=== PATIENT | female | born 1985 | race Caucasian/White ===

== ENCOUNTER 2017-06-01 19:07 | Emergency (ER) | payer OTHER ==
[2017-06-01 19:40] VITALS: BP 140/93
[2017-06-01] MEDS ORDERED: Acetaminophen 325 MG Tab PO ONE (19:54)
[2017-06-01] MEDS ORDERED: Sodium Chloride 0.9% 1,000 ML IV STA (19:54)
--- NOTE | 2017-06-01 20:08 | EDM.PDOC ---
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 Patient is . She has 1. Her last period was April 19. She is having some spotting started today. No recent intercourse or any vaginal trauma. Patient had similar symptoms 2 weeks ago that resolved spontaneously. She is Rh+. Denies any urinary symptoms. Denies any nausea or vomiting. Denies any blood in the urine or stool. Denies any chest pain or shortness breath. Denies any cough or fever. 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 Psychiatric History: Reports: Anxiety Endocrine/Metabolic History: Reports: Diabetes, Gestational - Infectious Disease History Infectious Disease History: Reports: Chicken Pox - Past Surgical History GI Surgical History: Reports: Appendectomy Social & Family History - Family History Family Medical History: Noncontributory - Tobacco Use Smoking Status *Q: Current Status Unknown Years of Tobacco use: 10 Packs/Tins Daily: 0 - Caffeine Use Caffeine Use: Reports: Coffee - Recreational Drug Use Recreational Drug Use: No ED ROS GENERAL - Review of Systems Review Of Systems: ROS reveals no pertinent complaints other than HPI. ED EXAM - Physical Exam Exam: See Below Exam Limited By: No Limitations General Appearance: Alert, WD/WN, No Apparent Distress Head: Atraumatic, Normocephalic Neck: Normal Inspection, Supple, Non-Tender, Full Range of Motion Respiratory/Chest: No Respiratory Distress, Lungs Clear, Normal Breath Sounds, No Accessory Muscle Use, Chest Non-Tender Cardiovascular: Normal Peripheral Pulses, Regular Rate, Rhythm, No Edema, No Gallop, No JVD, No Murmur, No Rub GI/Abdominal Exam: Normal Bowel Sounds, Soft, No Organomegaly, No Distention, No Abnormal Bruit, No Mass, Pelvis Stable, Tender (Left lower quadrant). No: Distended, Guarding, Rebound (Female) Exam: Normal Bimanual Exam, Normal External Exam, Normal Speculum Exam. No: Adnexal Mass (L), Adnexal Mass (R), Adnexal Tenderness, Cervical Dilatation, Cervical Discharge, Cervical Fluid, Cervical Lesions, Cervix Motion Tenderness, Products of Conception, Tissue Present in Cervix/Vagina, Uterine Tenderness, Vaginal Bleeding, Vaginal Discharge, Vaginal Lesions, Vaginal Tears Extremities: Normal Inspection, Normal Range of Motion, Non-Tender, Normal Capillary Refill, No Pedal Edema Neurological: Alert, Oriented, CN II-XII Intact, Normal Cognition, Normal Gait, Normal Reflexes, No Motor/Sensory Deficits Psychiatric: Normal Affect, Normal Mood Skin Exam: Warm, Dry, Intact, Normal Color, No Rash Course - Vital Signs Last Recorded V/S: Last Vital Signs Temp 36.0 C 06/01/17 19:38 Pulse 68 06/01/17 19:38 Resp 16 06/01/17 19:38 BP 140/93 H 06/01/17 19:38 Pulse Ox 100 06/01/17 19:38 - Orders/Labs/Meds Orders: Active Orders 24 hr Category Date Time Status Pelvic Exam, Set Up [RC] ASDIRECTED Care 06/01/17 19:54 Active OB Transvaginal [US] Stat Exams 06/01/17 20:01 Taken ABO/RH TYPE [BBK] Stat Lab 06/01/17 20:09 Results PATIENT RETYPE [BBK] Stat Lab 06/01/17 20:09 Results ED Pain Medications Reflex [OM.PC] Click to Edit Oth 06/01/17 19:54 Ordered Labs: Laboratory Tests 06/01/17 06/01/17 06/01/17 Range/Units 20:00 20:09 20:09 WBC 14.2 H (4.5-11.0) K/uL RBC 4.41 (3.30-5.50) M/uL Hgb 14.0 (12.0-15.0) g/dL Hct 41.1 (36.0-48.0) % MCV 93 (80-98) fL MCH 32 H (27-31) pg MCHC 34 (32-36) % Plt Count 309 (150-400) K/uL Neut % (Auto) 62 (36-66) % Lymph % (Auto) 30 (24-44) % [place] % (Auto) 6 (2-6) % Eos % (Auto) 3 (2-4) % Baso % (Auto) 0 (0-1) % APTT 26.1 L (27.0-36.0) sec Sodium (140-148) mmol/L Potassium (3.6-5.2) mmol/L Chloride (100-108) mmol/L Carbon Dioxide (21-32) mmol/L Anion Gap (5.0-14.0) mmol/L BUN (7-18) mg/dL Creatinine (0.6-1.0) mg/dL Est Cr Clr Drug Dosing mL/min Estimated GFR (MDRD) (>60) Glucose (74-106) mg/dL Calcium (8.5-10.1) mg/dL Total Bilirubin (0.2-1.0) mg/dL AST (15-37) U/L ALT (12-78) U/L Alkaline Phosphatase (46-116) U/L Total Protein (6.4-8.2) g/dL Albumin (3.4-5.0) g/dL Globulin (2.3-3.5) g/dL Albumin/Globulin Ratio (1.2-2.2) HCG, Quant 3957 H (0-6) mIU/mL Urine Color Urine Appearance Urine pH (4.5-8.0) Ur Specific [place] (1.008-1.030) Urine Protein (NEGATIVE) mg/dL Urine Glucose (UA) (NEGATIVE) mg/dL Urine Ketones (NEGATIVE) mg/dL Urine Occult Blood (NEGATIVE) Urine Nitrite (NEGATIVE) Urine Bilirubin (NEGATIVE) Urine Urobilinogen (NORMAL) mg/dL Ur Leukocyte Esterase (NEGATIVE) Urine RBC (0-5) Urine WBC (0-5) Ur Epithelial Cells Amorphous Sediment Urine Bacteria Urine Mucus Blood Type 06/01/17 06/01/17 06/01/17 Range/Units 20:09 20:09 21:38 WBC (4.5-11.0) K/uL RBC (3.30-5.50) M/uL Hgb (12.0-15.0) g/dL Hct (36.0-48.0) % MCV (80-98) fL MCH (27-31) pg MCHC (32-36) % Plt Count (150-400) K/uL Neut % (Auto) (36-66) % Lymph % (Auto) (24-44) % [place] % (Auto) (2-6) % Eos % (Auto) (2-4) % Baso % (Auto) (0-1) % APTT (27.0-36.0) sec Sodium 136 L (140-148) mmol/L Potassium 3.7 (3.6-5.2) mmol/L Chloride 104 (100-108) mmol/L Carbon Dioxide 26 (21-32) mmol/L Anion Gap 9.7 (5.0-14.0) mmol/L BUN 11 (7-18) mg/dL Creatinine 0.8 (0.6-1.0) mg/dL Est Cr Clr Drug Dosing 107.46 mL/min Estimated GFR (MDRD) > 60 (>60) Glucose 88 (74-106) mg/dL Calcium 8.8 (8.5-10.1) mg/dL Total Bilirubin 0.6 (0.2-1.0) mg/dL AST 14 L (15-37) U/L ALT 23 (12-78) U/L Alkaline Phosphatase 77 (46-116) U/L Total Protein 6.9 (6.4-8.2) g/dL Albumin 3.8 (3.4-5.0) g/dL Globulin 3.1 (2.3-3.5) g/dL Albumin/Globulin Ratio 1.2 (1.2-2.2) HCG, Quant (0-6) mIU/mL Urine Color Yellow Urine Appearance Clear Urine pH 6.0 (4.5-8.0) Ur Specific [place] 1.020 (1.008-1.030) Urine Protein Negative (NEGATIVE) mg/dL Urine Glucose (UA) Normal (NEGATIVE) mg/dL Urine Ketones Negative (NEGATIVE) mg/dL Urine Occult Blood Negative (NEGATIVE) Urine Nitrite Negative (NEGATIVE) Urine Bilirubin Negative (NEGATIVE) Urine Urobilinogen Normal (NORMAL) mg/dL Ur Leukocyte Esterase Negative (NEGATIVE) Urine RBC 0-5 (0-5) Urine WBC 0-5 (0-5) Ur Epithelial Cells Few Amorphous Sediment Not seen Urine Bacteria Few Urine Mucus Moderate Blood Type O POSITIVE Meds: Medications Discontinued Medications Generic Name Dose Route Start Last Admin Trade Name Tomasz PRN Reason Stop Dose Admin Acetaminophen 1,000 mg 06/01/17 19:54 Tylenol PO 06/01/17 19:55 NOW ONE Acetaminophen 1,000 mg 06/01/17 20:21 06/01/17 20:25 Tylenol Extra Strength PO 06/01/17 20:22 1,000 mg ONETIME ONE Administration Sodium Chloride 1,000 mls @ 999 mls/hr 06/01/17 19:54 06/01/17 20:39 Normal Saline IV 06/01/17 20:54 999 mls/hr .BOLUS STA Administration - Re-Assessments/Exams Free Text/Narrative Re-Assessment/Exam: 06/01/17 22:17 Patient was seen and examined shortly after arrival. Given 1 L normal saline bolus, 1 g of Tylenol. Symptoms markedly improved. Lab and imaging reviewed with the patient. Slightly elevated white count which can be secondary to also could be reactive. No sign of infection anywhere this point. No fever. Ultrasound shows an intrauterine gestational sac. No heart tones seen. Consistent was 5 weeks . Ovaries looks normal. No torsion. At this point unclear etiology of her pain. Differential includes but not limited to ectopic , round ligament pain, UTI, diverticulitis, ovarian torsion, threatened , etc. Unclear etiology at this point. No sign of ectopic. Urine unremarkable. No sign of ovarian torsion. Symptom markedly improved. Patient refused admission. Advised to monitor closely. Come back if symptom worsen. Tylenol for pain. To stay well-hydrated. And reevaluation tomorrow at the clinic or come back to the ER if symptom worsen. Patient agrees with the plan. Stable for discharge Departure - Departure Time of Disposition: 22:22 Disposition: Home, Self-Care 01 Clinical Impression: Threatened , Left lower quadrant abdominal pain of unknown etiology - Discharge Information Instructions: Pelvic Pain, Female, Ovarian Torsion Referrals: PCP,None [Primary Care Provider] - Forms: ED Department Discharge Additional Instructions: Advised to monitor closely. Come back if symptom worsen. Tylenol for pain. To stay well-hydrated. And reevaluation tomorrow at the clinic or come back to the ER if symptom worsen - My Orders Last 24 Hours: My Active Orders 06/01/17 19:54 Pelvic Exam, Set Up [RC] ASDIRECTED ED Pain Medications Reflex [OM.PC] Click to Edit 06/01/17 20:01 OB Transvaginal [US] Stat 06/01/17 20:09 ABO/RH TYPE [BBK] Stat PATIENT RETYPE [BBK] Stat - Assessment/Plan Last 24 Hours: My Active Orders 06/01/17 19:54 Pelvic Exam, Set Up [RC] ASDIRECTED ED Pain Medications Reflex [OM.PC] Click to Edit 06/01/17 20:01 OB Transvaginal [US] Stat 06/01/17 20:09 ABO/RH TYPE [BBK] Stat PATIENT RETYPE [BBK] Stat Plan: Advised to monitor closely. Come back if symptom worsen. Tylenol for pain. To stay well-hydrated. And reevaluation tomorrow at the clinic or come back to the ER if symptom worsen
[2017-06-01] MEDS ORDERED: Acetaminophen 500 MG Tab PO ONE (20:21)
--- NOTE | 2017-06-02 08:56 | US ---
OB Transvaginal HISTORY: , spotting FINDINGS: Transabdominal and transvaginal techniques were used during the exam. A single intrauterin e gestational sac is identified. No definite pole or cardiac activity can be seen. No sac is no t visualized.. Mean sac diameter corresponds of an EGA of 5 weeks 1 day gestation. This gives an EDC of 01/24/2018 +/- 1 week. No other uterine abnormality. Maternal ovaries are unremarkable. There is a small amount of free fluid in the pelvic cul-de-sac. IMPRESSION: Early intrauterine . Gestational sac measures 5 weeks 1 day +/- 1 week gestation as above. No definite pole or cardiac activity can be identified at this time. Recommend clini josue correlation and follow-up.
== END 2017-06-01 22:35 | disposition home or self-care (01) ==
LOC: JP.ED 19:07
DX: O20.0 Threatened abortion (principal)
CPT/HCPCS: 36415; 76817; 80053; 81001; 84702; 85025; 85730; 86900; 86901; 96360; 99284; A9270; J7040

== ENCOUNTER 2021-07-10 07:13 | Emergency (ER) | payer MEDICAID ==
[2021-07-10] MEDS ORDERED: Ondansetron 4 MG Tab.DIS PO ONE (07:57)
[2021-07-10] MEDS ORDERED: Acetaminophen/oxyCODONE 325-5 MG Tab PO STA (07:57)
[2021-07-10] MEDS ORDERED: LORazepam 0.5 MG Tab PO ONE (08:01)
--- NOTE | 2021-07-10 08:09 | EDM.PDOC ---
ED HPI GENERAL MEDICAL PROBLEM - General Chief Complaint: Genitourinary Problem Stated Complaint: BACK PAIN, POSSIBLE UTI Time Seen by Provider: 07/10/21 07:50 Source of Information: Reports: Patient, Old Records History Limitations: Reports: No Limitations - History of Present Illness INITIAL COMMENTS - FREE TEXT/NARRATIVE: 36 yo female presents with dysuria, nausea, and low back pain. No fever. Had some dysuria on Mon that went away until yesterday afternoon. Has not vomited. Took Pyridium, ibuprofen and acetaminophen this AM without relief. Feels different from her past UTI's. Has low pelvic pain now. Onset: Gradual Onset Date: 07/07/21 Duration: Getting Worse Location: Reports: Back, Pelvis Quality: Reports: Pressure Severity: Moderate Improves with: Reports: None Worsens with: Reports: Other (time) Context: Reports: Other (See HPI) Associated Symptoms: Reports: Nausea/Vomiting (no vomiting). 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, Other (see below) (Pyridium) Left Flank Pain Score (Numeric/FACES): 9 - Related Data Allergies Allergy/AdvReac Type Severity Reaction Status Date / Time [place] And Derivatives Allergy Anaphylactic Verified 07/10/21 08:10 Shock Home Meds: Home Meds Ciprofloxacin [Ciprofloxacin HCl] 250 mg PO Q12H #10 tablet 07/10/21 [Rx] Ondansetron [Zofran ODT] 4 mg PO Q6H PRN #8 tab.dis 07/10/21 [Rx] atorvaSTATin [Lipitor] 10 mg PO BEDTIME 07/10/21 [History] metFORMIN [Glucophage XR] 500 mg PO BID 07/10/21 [History] Past Medical History HEENT History: Reports: Other (See Below) Other HEENT History: allergic reaction - roof of mouth, throat, Respiratory History: Reports: Other (See Below) Other Respiratory History: trouble breathing prior to benadryl 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 Denies: Fever, Chills Cardiovascular: Reports: No Symptoms GI/Abdominal: Reports: Diarrhea, Nausea. Denies: Bloody Stool, Constipation, Vomiting : Reports: Dysuria, Other (pelvic pain) Musculoskeletal: Reports: Back Pain Skin: Reports: No Symptoms ED EXAM, RENAL/ - Physical Exam Exam: See Below Exam Limited By: No Limitations General Appearance: Alert, WD/WN, No Apparent Distress, Obese Eye Exam: Bilateral Eye: Normal Inspection Ears: Normal External Exam, Normal Canal, Hearing Grossly Normal, Normal TMs Nose: Normal Inspection, No Blood Throat/Mouth: Normal Inspection, Normal Lips, Normal Oropharynx, Normal Voice, No Airway Compromise Head: Atraumatic, Normocephalic Neck: Normal Inspection Respiratory/Chest: No Respiratory Distress, Lungs Clear, Normal Breath Sounds, No Accessory Muscle Use Cardiovascular: Regular Rate, Rhythm GI/Abdominal: Soft, Non-Tender, No Distention. No: Distended Back Exam: CVA Tenderness (R) (? mild), CVA Tenderness (L) (? mild) Extremities: Normal Inspection, Normal Range of Motion, Non-Tender, No Pedal Edema. No: Pedal Edema Neurological: Alert, Oriented, CN II-XII Intact, Normal Cognition, No Motor/Sensory Deficits Psychiatric: Normal Affect, Normal Mood Skin Exam: Warm, Dry, Intact, Normal Color, No Rash Course - Vital Signs Last Recorded V/S: Last Vital Signs Temp 36.8 C 07/10/21 08:11 Pulse 107 H 07/10/21 08:11 Resp 18 07/10/21 08:11 BP 160/94 H 07/10/21 08:11 Pulse Ox 99 07/10/21 08:11 - Orders/Labs/Meds Orders: Active Orders 24 hr Category Date Time Status CULTURE URINE [RM] Stat Lab 07/10/21 08:01 Received Labs: Laboratory Tests 07/10/21 Range/Units 07:38 Urine Color [place] A (YELLOW) Urine Appearance Cloudy A (CLEAR) Urine RBC Packed H (0-5) Urine WBC 75-100 H (0-5) Ur Epithelial Cells Rare Amorphous Sediment Moderate Urine Bacteria Many Urine Mucus Not seen Urine Other Meds: Medications Discontinued Medications Generic Name Dose Route Start Last Admin Trade Name Freq PRN Reason Stop Dose Admin Lorazepam 0.5 mg 07/10/21 08:01 07/10/21 08:15 Lorazepam 0.5 Mg Tab PO 07/10/21 08:02 0.5 mg ONETIME ONE Administration Ondansetron HCl 4 mg 07/10/21 07:57 07/10/21 08:15 Ondansetron 4 Mg Tab.Dis PO 07/10/21 07:58 4 mg ONETIME ONE Administration Oxycodone/Acetaminophen 1 tab 07/10/21 07:57 07/10/21 08:14 Acetaminophen/Oxycodone 325-5 Mg Tab PO 07/10/21 07:58 1 tab ONETIME STA Administration - Radiology Interpretation Free Text/Narrative:: CT abd/pelvis without contrast- IMPRESSION: 1. Nonspecific mild urinary bladder wall thickening. Correlate for clinical evidence of cystitis. 2. No urolithiasis or hydronephrosis bilaterally. 3. Diffuse hepatic steatosis. Dictated by James Arreola MD @ 07/10/2021 9:13:[address] Results Date: 07/10/21 CT Results Time: 09:14 Departure - Departure Time of Disposition: 09:20 Disposition: Home, Self-Care 01 Condition: Fair Clinical Impression: Cystitis - Discharge Information *PRESCRIPTION DRUG MONITORING PROGRAM REVIEWED*: Not Applicable *COPY OF PRESCRIPTION DRUG MONITORING REPORT IN PATIENT ELY: Not Applicable Instructions: Urinary Tract Infection, Adult, [id number] Referrals: Sonia Land PA-C [Primary Care Provider] - Forms: ED Department Discharge Additional Instructions: Take cipro every 12 hrs until gone. Use Zofran as needed for nausea control. Drink ample amts of fluids. Take Pyridium or AZO for dysuria sx's. Acetaminophen for pain +/- ibuprofen. Recheck for fever or if not fully recovered by the time you finish your antibiotics. We will contact you if your urine culture suggests a change in antibiotics is needed. Sepsis Event Note (ED) - Focused Exam Vital Signs: Vital Signs Temp Pulse Resp BP Pulse Ox 07/10/21 08:11 36.8 C 107 H 18 160/94 H 99 - My Orders Last 24 Hours: My Active Orders 07/10/21 08:01 CULTURE URINE [RM] Stat - Assessment/Plan Last 24 Hours: My Active Orders 07/10/21 08:01 CULTURE URINE [RM] Stat
[2021-07-10 08:14] VITALS: BP 160/94; PULSE 107
--- NOTE | 2021-07-10 09:14 | CRLCT ---
For Patients: As a result of the Century Cures Act, medical imaging exams and procedure reports are released immediately into your electronic medical record. You may view this report before your referring provider. If you have questions, please contact your health care provider. INDICATION: Flank pain and hematuria. TECHNIQUE: CT abdomen and pelvis without intravenous contrast. Coronal and sagittal formats. COMPARISON: None available. FINDINGS: The imaged lower chest is unremarkable. Diffuse hepatic steatosis. No biliary dilatation. The gallbladder, pancreas, spleen, and adrenals are unremarkable. Symmetric renal size. No urolithiasis or hydronephrosis bilaterally. Urinary bladder wall appears mildly thickened diffusely. The anteverted uterus. Mild scattered colonic diverticulosis without acute inflammatory changes. Nondilated small bowel. Appendix is surgically absent. No free air, free fluid, focal collection, or lymphadenopathy. Normal caliber abdominal aorta. No suspicious osseous lesion. IMPRESSION: 1. Nonspecific mild urinary bladder wall thickening. Correlate for clinical evidence of cystitis. 2. No urolithiasis or hydronephrosis bilaterally. 3. Diffuse hepatic steatosis. Dictated by James Arreola MD @ 07/10/2021 9:13:07 AM Please note that all CT scans at this facility use dose modulation, iterative reconstruction, and/or weight-based dosing when appropriate to reduce radiation dose to as low as reasonably achievable. Dictated by: James Arreola MD @ 07/10/2021 09:13:13 (Electronically Signed)
[2021-07-10] MEDS ORDERED: Ciprofloxacin 500 MG Tab PO ONE (09:19)
== END 2021-07-10 09:27 | disposition home or self-care (01) ==
LOC: JP.ED 07:13
DX: N30.90 Cystitis, unspecified without hematuria (principal); Z88.8 Allergy status to other drugs, medicaments and biological substances; Z79.899 Other long term (current) drug therapy
CPT/HCPCS: 74176; 81001; 87086; 99284; A9270

== ENCOUNTER 2021-10-07 20:30 | Emergency (ER) | payer OTHER, MEDICAID ==
[2021-10-07 21:09] VITALS: BP 163/96; PULSE 105
[2021-10-07] MEDS ORDERED: Pantoprazole 40 MG Tab.CR PO ONE (21:15)
[2021-10-07] MEDS ORDERED: Alum Hydrox/Mag Hydrox/Simeth 15 ML, Lidocaine 2% 15 ML PO ONE ×2 (21:15)
[2021-10-07] MEDS ORDERED: Ondansetron 4 MG Tab.DIS PO ONE (21:17)
== END 2021-10-07 22:24 | disposition home or self-care (01) ==
LOC: JP.ED 20:30
DX: K21.9 Gastro-esophageal reflux disease without esophagitis (principal); E78.00 Pure hypercholesterolemia, unspecified; Z91.048 Other nonmedicinal substance allergy status; Z79.899 Other long term (current) drug therapy; Z72.0 Tobacco use
CPT/HCPCS: 36415; 80053; 83690; 85025; 99284; A9270; Q0162; 93010; 99283

== ENCOUNTER 2021-11-12 11:04 | Emergency (ER) | payer OTHER, MEDICAID ==
[2021-11-12] MEDS ORDERED: Ondansetron 4 MG Tab.DIS PO ONE (11:47)
[2021-11-12] MEDS ORDERED: LORazepam 0.5 MG Tab PO ONE (11:47)
[2021-11-12 12:54] VITALS: BP 109/69; PULSE 87
== END 2021-11-12 13:03 | disposition home or self-care (01) ==
LOC: JP.ED 11:04
DX: F41.9 Anxiety disorder, unspecified (principal); F43.9 Reaction to severe stress, unspecified; E78.00 Pure hypercholesterolemia, unspecified; Z88.8 Allergy status to other drugs, medicaments and biological substances; Z79.899 Other long term (current) drug therapy
CPT/HCPCS: 36415; 80053; 81001; 84443; 84484; 85025; 93005; 99283; 99285-25; A9270-GY; Q0162

== ENCOUNTER 2022-07-17 20:37 | Emergency (ER) | payer OTHER, MEDICAID ==
[2022-07-17 20:55] VITALS: BP 157/95; PULSE 98
[2022-07-17] MEDS ORDERED: Aspirin 81 MG Tab.Chew PO ONE (21:31)
[2022-07-17] MEDS ORDERED: Alum Hydrox/Mag Hydrox/Simeth 15 ML, Lidocaine 2% 15 ML PO ONE ×2 (21:32)
[2022-07-17 22:05] LABS: TROPONIN I HIGH SENSITIVITY 4.3 pg/mL (<=60.3)
== END 2022-07-17 22:44 | disposition home or self-care (01) ==
LOC: JP.ED 20:37
DX: K21.9 Gastro-esophageal reflux disease without esophagitis (principal); Z88.8 Allergy status to other drugs, medicaments and biological substances; Z79.899 Other long term (current) drug therapy; Z79.84 Long term (current) use of oral hypoglycemic drugs
CPT/HCPCS: 36415; 80048; 84484; 85025; 93005; 99285; A9270

== ENCOUNTER 2023-02-19 10:28 | Emergency (ER) | payer OTHER, MEDICAID ==
[2023-02-19 11:19] VITALS: BP 141/98
[2023-02-19 11:48] VITALS: PULSE 83
[2023-02-19 12:08] LABS: BASOPHILS ABSOLUTE AUTO 0.05 K/uL (0.00-0.10); BASOPHILS PERCENT AUTO 0.4 % (0.1-1.3); EOSINOPHILS ABSOLUTE AUTO 0.13 K/uL (0.00-0.40); EOSINOPHILS PERCENT AUTO 1.1 % (0.0-5.4); HEMATOCRIT 39.9 % (34.3-46.0); HEMOGLOBIN 13.8 g/dL (11.2-15.5); IMMATURE GRAN ABSOLUTE AUTO 0.04 K/uL (0.00-0.23); IMMATURE GRAN PERCENT AUTO 0.3 % (0.0-0.7); LYMPHOCYTES ABSOLUTE AUTO 2.12 K/uL (0.8-3.3); LYMPHOCYTES PERCENT AUTO 17.3 % (11.4-47.7); MEAN CORPUSCULAR HEMOGLOBIN 31.8 pg (31.6-35.5); MEAN CORPUSCULAR HGB CONC 34.6 g/dL (31.6-35.5); MEAN CORPUSCULAR VOLUME 91.9 fL (81.4-99.0); MONOCYTES ABSOLUTE AUTO 0.57 K/uL (0.20-0.90); MONOCYTES PERCENT AUTO 4.6 % (3.3-12.6); NEUTROPHILS ABSOLUTE AUTO 9.35 K/uL (1.0-7.6); NEUTROPHILS PERCENT AUTO 76.3 % (40.0-78.1); PLATELET COUNT,PLT 300 K/uL (130-375); RED BLOOD CELL COUNT 4.34 M/uL (3.77-5.24); WHITE BLOOD CELL COUNT,WBC 12.3 K/uL (3.2-11.0)
[2023-02-19 12:37] LABS: ANION GAP 12.9 mmol/L (5.0-14.0); CALCIUM 8.7 mg/dL (8.5-10.1); CREATININE 0.9 mg/dL (0.6-1.0); EST CRCL DRUG DOSING (CG) 91.18 mL/min; POTASSIUM,K 3.9 mmol/L (3.6-5.2); TSH ULTRASENSITIVE 0.827 uIU/mL (0.358-3.740)
[2023-02-19] MEDS ORDERED: LORazepam 1 MG Tab PO ONE (13:19)
== END 2023-02-19 13:33 | disposition home or self-care (01) ==
LOC: JP.ED 10:28
DX: F41.9 Anxiety disorder, unspecified (principal); R19.7 Diarrhea, unspecified; E78.00 Pure hypercholesterolemia, unspecified; Z88.1 Allergy status to other antibiotic agents; Z88.8 Allergy status to other drugs, medicaments and biological substances; Z79.899 Other long term (current) drug therapy
CPT/HCPCS: 36415; 80048; 84443; 85025; 99284; A9270

== ENCOUNTER 2023-07-10 09:46 | Emergency (ER) | payer MEDICAID, OTHER ==
[2023-07-10 10:39] LABS: BASOPHILS ABSOLUTE AUTO 0.04 K/uL (0.00-0.10); BASOPHILS PERCENT AUTO 0.4 % (0.1-1.3); EOSINOPHILS ABSOLUTE AUTO 0.16 K/uL (0.00-0.40); EOSINOPHILS PERCENT AUTO 1.6 % (0.0-5.4); HEMATOCRIT 36.1 % (34.3-46.0); HEMOGLOBIN 12.5 g/dL (11.2-15.5); IMMATURE GRAN ABSOLUTE AUTO 0.03 K/uL (0.00-0.23); IMMATURE GRAN PERCENT AUTO 0.3 % (0.0-0.7); LYMPHOCYTES ABSOLUTE AUTO 4.86 K/uL (0.8-3.3); LYMPHOCYTES PERCENT AUTO 47.9 % (11.4-47.7); MEAN CORPUSCULAR HEMOGLOBIN 32.2 pg (31.6-35.5); MEAN CORPUSCULAR HGB CONC 34.6 g/dL (31.6-35.5); MONOCYTES ABSOLUTE AUTO 0.54 K/uL (0.20-0.90); MONOCYTES PERCENT AUTO 5.3 % (3.3-12.6); NEUTROPHILS ABSOLUTE AUTO 4.52 K/uL (1.0-7.6); NEUTROPHILS PERCENT AUTO 44.5 % (40.0-78.1); PLATELET COUNT,PLT 299 K/uL (130-375); RED BLOOD CELL COUNT 3.88 M/uL (3.77-5.24); WHITE BLOOD CELL COUNT,WBC 10.2 K/uL (3.2-11.0)
[2023-07-10] MEDS ORDERED: Ibuprofen 400 MG Tab PO ONE (10:46)
[2023-07-10 11:01] VITALS: PULSE 68
[2023-07-10 11:08] LABS: BLOOD UREA NITROGEN,BUN 11 mg/dL (7-18); CALCIUM 8.7 mg/dL (8.5-10.1); CARBON DIOXIDE,CO2 27 mmol/L (21-32); CHLORIDE,CL 102 mmol/L (100-108); CREATININE 0.8 mg/dL (0.6-1.0); ESTIMATED GFR 98 mL/min (>60); GLUCOSE RANDOM 83 mg/dL (74-106); POTASSIUM,K 3.2 mmol/L (3.6-5.2); SODIUM,NA 138 mmol/L (140-148)
[2023-07-10 11:09] LABS: ANION GAP 12.2 mmol/L (5.0-14.0); TROPONIN I HIGH SENSITIVITY < 4.0 pg/mL (<=60.3)
[2023-07-10 11:09] LABS: MAGNESIUM 1.8 mg/dL (1.8-2.4); TSH ULTRASENSITIVE 2.689 uIU/mL (0.358-3.740)
[2023-07-10 11:13] VITALS: BP 123/79
== END 2023-07-10 11:30 | disposition home or self-care (01) ==
LOC: JP.ED 09:46
DX: R07.89 Other chest pain (principal); M75.42 Impingement syndrome of left shoulder; F41.9 Anxiety disorder, unspecified; I10 Essential (primary) hypertension; E11.9 Type 2 diabetes mellitus without complications; E78.5 Hyperlipidemia, unspecified; Z88.1 Allergy status to other antibiotic agents; Z91.018 Allergy to other foods; Z79.84 Long term (current) use of oral hypoglycemic drugs; Z79.899 Other long term (current) drug therapy
CPT/HCPCS: 36415; 71045; 71045-26; 80048; 83735; 84443; 84484; 85025; 85379; 93005; 93010; 99284; 99285; A9270-GY

== ENCOUNTER 2023-07-11 18:15 | Emergency (ER) | payer OTHER ==
[2023-07-11 19:40] LABS: BASOPHILS ABSOLUTE AUTO 0.03 K/uL (0.00-0.10); BASOPHILS PERCENT AUTO 0.2 % (0.1-1.3); EOSINOPHILS ABSOLUTE AUTO 0.24 K/uL (0.00-0.40); EOSINOPHILS PERCENT AUTO 1.9 % (0.0-5.4); HEMATOCRIT 36.6 % (34.3-46.0); HEMOGLOBIN 12.8 g/dL (11.2-15.5); IMMATURE GRAN ABSOLUTE AUTO 0.05 K/uL (0.00-0.23); IMMATURE GRAN PERCENT AUTO 0.4 % (0.0-0.7); LYMPHOCYTES ABSOLUTE AUTO 4.85 K/uL (0.8-3.3); LYMPHOCYTES PERCENT AUTO 37.8 % (11.4-47.7); MEAN CORPUSCULAR HEMOGLOBIN 32.4 pg (31.6-35.5); MEAN CORPUSCULAR VOLUME 92.7 fL (81.4-99.0); MONOCYTES ABSOLUTE AUTO 0.63 K/uL (0.20-0.90); MONOCYTES PERCENT AUTO 4.9 % (3.3-12.6); NEUTROPHILS ABSOLUTE AUTO 7.04 K/uL (1.0-7.6); NEUTROPHILS PERCENT AUTO 54.8 % (40.0-78.1); PLATELET COUNT,PLT 315 K/uL (130-375); RED BLOOD CELL COUNT 3.95 M/uL (3.77-5.24); WHITE BLOOD CELL COUNT,WBC 12.8 K/uL (3.2-11.0)
[2023-07-11] MEDS ORDERED: Sodium Chloride 0.9% 50 ML IV SCH (19:45)
[2023-07-11] MEDS ORDERED: Iopamidol 612 MG/ML 100 ML Bottle IV SCH (19:45)
[2023-07-11 20:01] LABS: A/G RATIO 1.4 (1.2-2.2); ALANINE AMINOTRANSFERASE,ALT 12 U/L (12-78); ALBUMIN 3.7 g/dL (3.4-5.0); ALKALINE PHOSPHATASE 59 U/L (46-116); ASPARTATE AMNIOTRANSFERASE,AST 11 U/L (15-37); BILIRUBIN TOTAL 1.1 mg/dL (0.2-1.0); BLOOD UREA NITROGEN,BUN 10 mg/dL (7-18); C-REACTIVE PROTEIN 0.07 mg/dL (0.0-0.3); CALCIUM 8.5 mg/dL (8.5-10.1); CARBON DIOXIDE,CO2 27 mmol/L (21-32); CHLORIDE,CL 102 mmol/L (100-108); CREATININE 0.8 mg/dL (0.6-1.0); ESTIMATED GFR 98 mL/min (>60); GLUCOSE RANDOM 89 mg/dL (74-106); POTASSIUM,K 3.6 mmol/L (3.6-5.2); PROTEIN TOTAL,TP 6.4 g/dL (6.4-8.2); SODIUM,NA 139 mmol/L (140-148)
[2023-07-11 20:02] LABS: ANION GAP 13.6 mmol/L (5.0-14.0)
[2023-07-11 20:04] LABS: APPEARANCE,URINE CLEAR (CLEAR); BILIRUBIN,URINE NEGATIVE (NEGATIVE); COLOR,URINE YELLOW (YELLOW); GLUCOSE,URINE NEGATIVE (NEGATIVE); KETONES,URINE NEGATIVE (NEGATIVE); LEUKOCYTE ESTERASE,URINE NEGATIVE (NEGATIVE); NITRITE,URINE NEGATIVE (NEGATIVE); OCCULT BLOOD,URINE TRACE-INTACT (NEGATIVE); PROTEIN,URINE NEGATIVE (NEGATIVE); UROBILINOGEN,URINE 0.2 EU/dL (0.2-1.0)
[2023-07-11 20:10] LABS: AMORPHOUS SEDIMENT,URINE NOT SEEN; BACTERIA,URINE RARE; EPITHELIAL CELLS,URINE RARE; MUCUS,URINE NOT SEEN; RBC,URINE 0-5 (0-5); WBC,URINE NOT SEEN (0-5)
[2023-07-11 20:57] VITALS: BP 99/58; PULSE 70
== END 2023-07-11 22:03 | disposition home or self-care (01) ==
LOC: JP.ED 18:15
DX: F41.9 Anxiety disorder, unspecified (principal); E78.00 Pure hypercholesterolemia, unspecified; Z88.1 Allergy status to other antibiotic agents; Z91.018 Allergy to other foods; Z79.899 Other long term (current) drug therapy
CPT/HCPCS: 36415; 70450; 74177; 80053; 81001; 83605; 84484; 85025; 86140; 93005; 93010; 99284; J3490; Q9967

== ENCOUNTER 2023-07-23 17:33 | Emergency (ER) | payer OTHER ==
[2023-07-23 18:20] LABS: BASOPHILS ABSOLUTE AUTO 0.04 K/uL (0.00-0.10); BASOPHILS PERCENT AUTO 0.5 % (0.1-1.3); EOSINOPHILS ABSOLUTE AUTO 0.29 K/uL (0.00-0.40); EOSINOPHILS PERCENT AUTO 3.5 % (0.0-5.4); HEMATOCRIT 36.2 % (34.3-46.0); HEMOGLOBIN 12.5 g/dL (11.2-15.5); IMMATURE GRAN PERCENT AUTO 0.2 % (0.0-0.7); LYMPHOCYTES ABSOLUTE AUTO 3.38 K/uL (0.8-3.3); LYMPHOCYTES PERCENT AUTO 41.2 % (11.4-47.7); MEAN CORPUSCULAR HEMOGLOBIN 32.2 pg (31.6-35.5); MEAN CORPUSCULAR HGB CONC 34.5 g/dL (31.6-35.5); MEAN CORPUSCULAR VOLUME 93.3 fL (81.4-99.0); MONOCYTES ABSOLUTE AUTO 0.37 K/uL (0.20-0.90); MONOCYTES PERCENT AUTO 4.5 % (3.3-12.6); NEUTROPHILS ABSOLUTE AUTO 4.11 K/uL (1.0-7.6); NEUTROPHILS PERCENT AUTO 50.1 % (40.0-78.1); PLATELET COUNT,PLT 266 K/uL (130-375); RED BLOOD CELL COUNT 3.88 M/uL (3.77-5.24); WHITE BLOOD CELL COUNT,WBC 8.2 K/uL (3.2-11.0)
[2023-07-23 18:20] LABS: BASE EXCESS ARTERIAL 0.6 mm/L; BICARBONATE,ARTERIAL 23.8 mmol/L (22.0-26.0); CARBOXYHEMOGLOBIN 1.4 % (0.0-1.6); METHEMOGLOBIN 1.1 %; O2 SATURATION ARTERIAL 97.4 % (95.0-98.0); PCO2 ARTERIAL 34.7 mmHg (35.0-42.0); PO2 ARTERIAL 88.6 mmHg (75.0-100.0); TOTAL HEMOGLOBIN 12.5 g/dL (12.0-16.0)
[2023-07-23 18:23] LABS: IMMATURE GRAN ABSOLUTE AUTO 0.02 K/uL (0.00-0.23)
[2023-07-23] MEDS: LORazepam 2 MG/ML SDV IM PRN (18:33)
[2023-07-23 18:40] LABS: A/G RATIO 1.4 (1.2-2.2); ALANINE AMINOTRANSFERASE,ALT 13 U/L (12-78); ALBUMIN 3.7 g/dL (3.4-5.0); ALKALINE PHOSPHATASE 68 U/L (46-116); ANION GAP 7.1 mmol/L (5.0-14.0); ASPARTATE AMNIOTRANSFERASE,AST 13 U/L (15-37); BILIRUBIN TOTAL 0.8 mg/dL (0.2-1.0); BLOOD UREA NITROGEN,BUN 14 mg/dL (7-18); CALCIUM 8.3 mg/dL (8.5-10.1); CARBON DIOXIDE,CO2 27 mmol/L (21-32); CHLORIDE,CL 106 mmol/L (100-108); CREATININE 0.9 mg/dL (0.6-1.0); EST CRCL DRUG DOSING (CG) 90.31 mL/min; ESTIMATED GFR 85 mL/min (>60); GLUCOSE RANDOM 125 mg/dL (74-106); MAGNESIUM 1.8 mg/dL (1.8-2.4); POTASSIUM,K 3.6 mmol/L (3.6-5.2); PROTEIN TOTAL,TP 6.3 g/dL (6.4-8.2); SODIUM,NA 140 mmol/L (140-148)
[2023-07-23 19:24] VITALS: BP 137/89; PULSE 78
== END 2023-07-23 20:28 | disposition home or self-care (01) ==
LOC: JP.ED 17:33
DX: R20.2 Paresthesia of skin (principal); E78.00 Pure hypercholesterolemia, unspecified; F17.210 Nicotine dependence, cigarettes, uncomplicated; Z79.84 Long term (current) use of oral hypoglycemic drugs; Z79.899 Other long term (current) drug therapy; Z91.018 Allergy to other foods; Z88.1 Allergy status to other antibiotic agents
CPT/HCPCS: 36415; 36600; 80053; 82803; 83735; 85025; 96372; 99284; J2060

== ENCOUNTER 2023-10-07 22:08 | Emergency (ER) | payer OTHER ==
[2023-10-07 23:05] VITALS: BP 134/94; PULSE 123
[2023-10-07 23:39] LABS: CORONAVIRUS COVID-19 NAA NEGATIVE (NEGATIVE); INFLUENZA A NAA NEGATIVE (NEGATIVE); INFLUENZA B NAA NEGATIVE (NEGATIVE); RESPIRATORY SYNCYTIAL VIR NAA NEGATIVE (NEGATIVE)
[2023-10-08 00:08] LABS: BASOPHILS PERCENT AUTO 0.2 % (0.1-1.3); EOSINOPHILS ABSOLUTE AUTO 0.21 K/uL (0.00-0.40); EOSINOPHILS PERCENT AUTO 2.3 % (0.0-5.4); HEMATOCRIT 38.7 % (34.3-46.0); HEMOGLOBIN 13.1 g/dL (11.2-15.5); IMMATURE GRAN ABSOLUTE AUTO 0.05 K/uL (0.00-0.23); IMMATURE GRAN PERCENT AUTO 0.6 % (0.0-0.7); LYMPHOCYTES ABSOLUTE AUTO 3.11 K/uL (0.8-3.3); LYMPHOCYTES PERCENT AUTO 34.5 % (11.4-47.7); MEAN CORPUSCULAR HEMOGLOBIN 31.1 pg (31.6-35.5); MEAN CORPUSCULAR HGB CONC 33.9 g/dL (31.6-35.5); MEAN CORPUSCULAR VOLUME 91.9 fL (81.4-99.0); MONOCYTES ABSOLUTE AUTO 0.44 K/uL (0.20-0.90); MONOCYTES PERCENT AUTO 4.9 % (3.3-12.6); NEUTROPHILS ABSOLUTE AUTO 5.18 K/uL (1.0-7.6); NEUTROPHILS PERCENT AUTO 57.5 % (40.0-78.1); PLATELET COUNT,PLT 309 K/uL (130-375); RED BLOOD CELL COUNT 4.21 M/uL (3.77-5.24)
[2023-10-08 00:09] LABS: BASOPHILS ABSOLUTE AUTO 0.02 K/uL (0.00-0.10)
[2023-10-08] MEDS: HYDROmorphone 1 MG/ML Syringe IM ONE (00:15)
[2023-10-08 00:20] LABS: CALCIUM 8.4 mg/dL (8.5-10.1); CREATININE 0.7 mg/dL (0.6-1.0); EST CRCL DRUG DOSING (CG) 116.11 mL/min; POTASSIUM,K 4.3 mmol/L (3.6-5.2)
[2023-10-08 00:21] LABS: ANION GAP 10.3 mmol/L (5.0-14.0)
== END 2023-10-08 00:50 | disposition home or self-care (01) ==
LOC: JP.ED 22:08
DX: R51.9 Headache, unspecified (principal); E78.00 Pure hypercholesterolemia, unspecified; F17.210 Nicotine dependence, cigarettes, uncomplicated; Z90.49 Acquired absence of other specified parts of digestive tract; Z79.899 Other long term (current) drug therapy; Z88.1 Allergy status to other antibiotic agents; Z88.8 Allergy status to other drugs, medicaments and biological substances
CPT/HCPCS: 0241U; 36415; 80048; 83605; 85025; 86140; 96372; 99283; J1170

== ENCOUNTER 2023-11-21 18:53 | Emergency (ER) | payer MEDICAID, OTHER ==
[2023-11-21 21:16] LABS: BASOPHILS ABSOLUTE AUTO 0.03 K/uL (0.00-0.10); BASOPHILS PERCENT AUTO 0.4 % (0.1-1.3); EOSINOPHILS ABSOLUTE AUTO 0.08 K/uL (0.00-0.40); HEMATOCRIT 35.5 % (34.3-46.0); HEMOGLOBIN 11.9 g/dL (11.2-15.5); IMMATURE GRAN ABSOLUTE AUTO 0.03 K/uL (0.00-0.23); IMMATURE GRAN PERCENT AUTO 0.4 % (0.0-0.7); LYMPHOCYTES ABSOLUTE AUTO 3.09 K/uL (0.8-3.3); LYMPHOCYTES PERCENT AUTO 38.5 % (11.4-47.7); MEAN CORPUSCULAR HEMOGLOBIN 30.7 pg (31.6-35.5); MEAN CORPUSCULAR HGB CONC 33.5 g/dL (31.6-35.5); MEAN CORPUSCULAR VOLUME 91.5 fL (81.4-99.0); MONOCYTES ABSOLUTE AUTO 0.43 K/uL (0.20-0.90); MONOCYTES PERCENT AUTO 5.4 % (3.3-12.6); NEUTROPHILS ABSOLUTE AUTO 4.36 K/uL (1.0-7.6); NEUTROPHILS PERCENT AUTO 54.3 % (40.0-78.1); PLATELET COUNT,PLT 293 K/uL (130-375); RED BLOOD CELL COUNT 3.88 M/uL (3.77-5.24)
[2023-11-21 21:35] LABS: APPEARANCE,URINE SLIGHTLY CLOUDY (CLEAR); BILIRUBIN,URINE NEGATIVE (NEGATIVE); COLOR,URINE YELLOW (YELLOW); GLUCOSE,URINE NEGATIVE (NEGATIVE); KETONES,URINE NEGATIVE (NEGATIVE); LEUKOCYTE ESTERASE,URINE NEGATIVE (NEGATIVE); NITRITE,URINE NEGATIVE (NEGATIVE); OCCULT BLOOD,URINE NEGATIVE (NEGATIVE); PROTEIN,URINE NEGATIVE (NEGATIVE); UROBILINOGEN,URINE 0.2 EU/dL (0.2-1.0)
[2023-11-21 21:37] LABS: A/G RATIO 1.4 (1.2-2.2); ALANINE AMINOTRANSFERASE,ALT 17 U/L (12-78); ALBUMIN 3.8 g/dL (3.4-5.0); ALKALINE PHOSPHATASE 55 U/L (46-116); ANION GAP 10.6 mmol/L (5.0-14.0); ASPARTATE AMNIOTRANSFERASE,AST 12 U/L (15-37); BILIRUBIN TOTAL 0.8 mg/dL (0.2-1.0); BLOOD UREA NITROGEN,BUN 11 mg/dL (7-18); CALCIUM 8.7 mg/dL (8.5-10.1); CARBON DIOXIDE,CO2 24 mmol/L (21-32); CHLORIDE,CL 105 mmol/L (100-108); CREATININE 0.9 mg/dL (0.6-1.0); EST CRCL DRUG DOSING (CG) 90.31 mL/min; ESTIMATED GFR 85 mL/min (>60); GLUCOSE RANDOM 91 mg/dL (74-106); POTASSIUM,K 3.8 mmol/L (3.6-5.2); PROTEIN TOTAL,TP 6.6 g/dL (6.4-8.2); SODIUM,NA 140 mmol/L (140-148)
[2023-11-21 21:38] LABS: C-REACTIVE PROTEIN < 0.50 mg/dL (<0.50); SEDIMENTATION RATE MANUAL 15 mm/hr (0-25)
[2023-11-21 21:40] LABS: AMORPHOUS SEDIMENT,URINE NOT SEEN; BACTERIA,URINE MODERATE; EPITHELIAL CELLS,URINE MODERATE; MUCUS,URINE NOT SEEN; RBC,URINE 0-5 (0-5); WBC,URINE 0-5 (0-5)
[2023-11-21] MEDS: Cyclobenzaprine 10 MG Tab PO ONE (22:14)
[2023-11-21 22:24] VITALS: BP 123/84; PULSE 72
== END 2023-11-21 23:03 | disposition home or self-care (01) ==
LOC: JP.ED 18:53
DX: M26.602 Left temporomandibular joint disorder, unspecified (principal); F17.210 Nicotine dependence, cigarettes, uncomplicated; E78.00 Pure hypercholesterolemia, unspecified; Z88.8 Allergy status to other drugs, medicaments and biological substances; Z91.048 Other nonmedicinal substance allergy status; Z79.899 Other long term (current) drug therapy; Z79.85 Long-term (current) use of injectable non-insulin antidiabetic drugs
CPT/HCPCS: 36415; 80053; 81001; 85025; 85651; 86140; 99283; A9270-GY

== ENCOUNTER 2023-12-17 06:06 | Emergency (ER) | payer OTHER ==
[2023-12-17 06:18] VITALS: BP 147/88; PULSE 64
== END 2023-12-17 06:45 | disposition home or self-care (01) ==
LOC: JP.ED 06:06
DX: K04.7 Periapical abscess without sinus (principal); E78.00 Pure hypercholesterolemia, unspecified; F17.210 Nicotine dependence, cigarettes, uncomplicated; Z88.1 Allergy status to other antibiotic agents; Z91.018 Allergy to other foods; Z91.048 Other nonmedicinal substance allergy status; Z88.8 Allergy status to other drugs, medicaments and biological substances; Z79.899 Other long term (current) drug therapy; Z86.19 Personal history of other infectious and parasitic diseases
CPT/HCPCS: 99282

== ENCOUNTER 2024-02-05 19:40 | Emergency (ER) | payer OTHER ==
[2024-02-05] MEDS: hydrOXYzine HCl 25 MG Tab PO ONE (20:38)
[2024-02-05 21:53] VITALS: BP 143/92; PULSE 92
== END 2024-02-05 21:58 | disposition home or self-care (01) ==
LOC: JP.ED 19:40
DX: F41.0 Panic disorder [episodic paroxysmal anxiety] (principal); E78.00 Pure hypercholesterolemia, unspecified; Z88.1 Allergy status to other antibiotic agents; Z88.8 Allergy status to other drugs, medicaments and biological substances; Z91.018 Allergy to other foods; Z91.048 Other nonmedicinal substance allergy status
CPT/HCPCS: 70360; 99283; A9270; 99284

== ENCOUNTER 2024-03-06 12:29 | Emergency (ER) | payer OTHER ==
[2024-03-06] MEDS: Aspirin 81 MG Tab.Chew PO ONE (12:55)
[2024-03-06 12:57] LABS: BASOPHILS ABSOLUTE AUTO 0.03 K/uL (0.00-0.10); BASOPHILS PERCENT AUTO 0.5 % (0.1-1.3); EOSINOPHILS ABSOLUTE AUTO 0.17 K/uL (0.00-0.40); EOSINOPHILS PERCENT AUTO 2.8 % (0.0-5.4); HEMATOCRIT 36.3 % (34.3-46.0); HEMOGLOBIN 12.5 g/dL (11.2-15.5); IMMATURE GRAN PERCENT AUTO 0.2 % (0.0-0.7); LYMPHOCYTES ABSOLUTE AUTO 3.13 K/uL (0.8-3.3); LYMPHOCYTES PERCENT AUTO 51.3 % (11.4-47.7); MEAN CORPUSCULAR HGB CONC 34.4 g/dL (31.6-35.5); MEAN CORPUSCULAR VOLUME 90.1 fL (81.4-99.0); MONOCYTES PERCENT AUTO 4.9 % (3.3-12.6); NEUTROPHILS ABSOLUTE AUTO 2.46 K/uL (1.0-7.6); NEUTROPHILS PERCENT AUTO 40.3 % (40.0-78.1); PLATELET COUNT,PLT 320 K/uL (130-375); RED BLOOD CELL COUNT 4.03 M/uL (3.77-5.24); WHITE BLOOD CELL COUNT,WBC 6.1 K/uL (3.2-11.0)
[2024-03-06 13:00] LABS: IMMATURE GRAN ABSOLUTE AUTO 0.01 K/uL (0.00-0.23)
[2024-03-06] MEDS: ALPRAZolam 0.25 MG Tab PO ONE (13:06)
[2024-03-06 13:21] LABS: A/G RATIO 1.4 (1.2-2.2); ALANINE AMINOTRANSFERASE,ALT 24 U/L (12-78); ALKALINE PHOSPHATASE 62 U/L (46-116); ASPARTATE AMNIOTRANSFERASE,AST 14 U/L (15-37); BILIRUBIN TOTAL 1.5 mg/dL (0.2-1.0); BLOOD UREA NITROGEN,BUN 9 mg/dL (7-18); CARBON DIOXIDE,CO2 24 mmol/L (21-32); CHLORIDE,CL 105 mmol/L (100-108); CREATININE 0.8 mg/dL (0.6-1.0); ESTIMATED GFR 98 mL/min (>60); GLUCOSE RANDOM 111 mg/dL (74-106); POTASSIUM,K 3.8 mmol/L (3.6-5.2); PROTEIN TOTAL,TP 6.8 g/dL (6.4-8.2); SODIUM,NA 137 mmol/L (140-148)
[2024-03-06 13:26] LABS: ANION GAP 11.8 mmol/L (5.0-14.0); TROPONIN I HIGH SENSITIVITY < 4.0 pg/mL (<=60.3)
[2024-03-06 16:06] VITALS: BP 128/82; PULSE 89
== END 2024-03-06 16:48 | disposition home or self-care (01) ==
LOC: JP.ED 12:29
DX: R10.13 Epigastric pain (principal); E78.00 Pure hypercholesterolemia, unspecified; Z90.49 Acquired absence of other specified parts of digestive tract; Z88.8 Allergy status to other drugs, medicaments and biological substances; Z91.048 Other nonmedicinal substance allergy status
CPT/HCPCS: 36415; 76705; 76705-26; 80053; 82248; 83690; 84484; 85025; 99285; A9270-GY

== ENCOUNTER 2024-05-21 20:19 | Emergency (ER) | payer OTHER ==
[2024-05-21 20:52] VITALS: BP 121/72; PULSE 87
[2024-05-21 22:19] LABS: BASOPHILS ABSOLUTE AUTO 0.08 K/uL (0.00-0.10); BASOPHILS PERCENT AUTO 0.7 % (0.1-1.3); EOSINOPHILS ABSOLUTE AUTO 0.44 K/uL (0.00-0.40); EOSINOPHILS PERCENT AUTO 4.1 % (0.0-5.4); HEMATOCRIT 34.1 % (34.3-46.0); HEMOGLOBIN 11.8 g/dL (11.2-15.5); IMMATURE GRAN ABSOLUTE AUTO 0.03 K/uL (0.00-0.23); IMMATURE GRAN PERCENT AUTO 0.3 % (0.0-0.7); LYMPHOCYTES ABSOLUTE AUTO 2.94 K/uL (0.8-3.3); LYMPHOCYTES PERCENT AUTO 27.2 % (11.4-47.7); MEAN CORPUSCULAR HEMOGLOBIN 30.1 pg (31.6-35.5); MEAN CORPUSCULAR HGB CONC 34.6 g/dL (31.6-35.5); MONOCYTES ABSOLUTE AUTO 0.45 K/uL (0.20-0.90); MONOCYTES PERCENT AUTO 4.2 % (3.3-12.6); NEUTROPHILS ABSOLUTE AUTO 6.88 K/uL (1.0-7.6); NEUTROPHILS PERCENT AUTO 63.5 % (40.0-78.1); PLATELET COUNT,PLT 292 K/uL (130-375); RED BLOOD CELL COUNT 3.92 M/uL (3.77-5.24); WHITE BLOOD CELL COUNT,WBC 10.8 K/uL (3.2-11.0)
[2024-05-21 22:39] LABS: APPEARANCE,URINE SLIGHTLY CLOUDY (CLEAR); BILIRUBIN,URINE NEGATIVE (NEGATIVE); COLOR,URINE YELLOW (YELLOW); GLUCOSE,URINE NEGATIVE (NEGATIVE); KETONES,URINE NEGATIVE (NEGATIVE); LEUKOCYTE ESTERASE,URINE TRACE (NEGATIVE); NITRITE,URINE NEGATIVE (NEGATIVE); OCCULT BLOOD,URINE LARGE (NEGATIVE); PH,URINE 5.5 (5.0-8.0); PROTEIN,URINE NEGATIVE (NEGATIVE); UROBILINOGEN,URINE 0.2 EU/dL (0.2-1.0)
[2024-05-21 22:40] LABS: ANION GAP 11.7 mmol/L (5.0-14.0); CALCIUM 9.3 mg/dL (8.5-10.1); CREATININE 0.9 mg/dL (0.6-1.0); EST CRCL DRUG DOSING (CG) 90.31 mL/min; MAGNESIUM 1.8 mg/dL (1.8-2.4); POTASSIUM,K 3.9 mmol/L (3.6-5.2)
[2024-05-21 22:43] LABS: A/G RATIO 1.4 (1.2-2.2); ALANINE AMINOTRANSFERASE,ALT 16 U/L (12-78); ALKALINE PHOSPHATASE 72 U/L (46-116); ASPARTATE AMNIOTRANSFERASE,AST 10 U/L (15-37); BILIRUBIN DIRECT 0.09 mg/dL (0.0-0.2); BILIRUBIN TOTAL 0.5 mg/dL (0.2-1.0); PROTEIN TOTAL,TP 6.8 g/dL (6.4-8.2)
[2024-05-21 22:50] LABS: AMORPHOUS SEDIMENT,URINE NOT SEEN; BACTERIA,URINE FEW; EPITHELIAL CELLS,URINE FEW; MUCUS,URINE NOT SEEN; RBC,URINE 75-100 (0-5); WBC,URINE 0-5 (0-5)
== END 2024-05-21 23:40 | disposition home or self-care (01) ==
LOC: JP.ED 20:19
DX: N39.0 Urinary tract infection, site not specified (principal); E78.00 Pure hypercholesterolemia, unspecified; F17.210 Nicotine dependence, cigarettes, uncomplicated; Z88.8 Allergy status to other drugs, medicaments and biological substances; Z91.048 Other nonmedicinal substance allergy status; Z90.49 Acquired absence of other specified parts of digestive tract
CPT/HCPCS: 36415; 80048; 80076; 81001; 83690; 83735; 85025; 93005; 99284

== ENCOUNTER 2024-08-23 19:18 | Emergency (ER) | payer OTHER ==
[2024-08-23 19:59] VITALS: BP 144/90; PULSE 88
[2024-08-23 21:07] LABS: BASOPHILS ABSOLUTE AUTO 0.05 K/uL (0.00-0.10); BASOPHILS PERCENT AUTO 0.5 % (0.1-1.3); EOSINOPHILS ABSOLUTE AUTO 0.27 K/uL (0.00-0.40); EOSINOPHILS PERCENT AUTO 2.9 % (0.0-5.4); HEMATOCRIT 34.9 % (34.3-46.0); HEMOGLOBIN 11.8 g/dL (11.2-15.5); IMMATURE GRAN PERCENT AUTO 0.2 % (0.0-0.7); LYMPHOCYTES ABSOLUTE AUTO 2.97 K/uL (0.8-3.3); LYMPHOCYTES PERCENT AUTO 31.8 % (11.4-47.7); MEAN CORPUSCULAR HEMOGLOBIN 29.4 pg (31.6-35.5); MEAN CORPUSCULAR HGB CONC 33.8 g/dL (31.6-35.5); MONOCYTES ABSOLUTE AUTO 0.53 K/uL (0.20-0.90); MONOCYTES PERCENT AUTO 5.7 % (3.3-12.6); NEUTROPHILS PERCENT AUTO 58.9 % (40.0-78.1); PLATELET COUNT,PLT 398 K/uL (130-375); RED BLOOD CELL COUNT 4.01 M/uL (3.77-5.24); WHITE BLOOD CELL COUNT,WBC 9.3 K/uL (3.2-11.0)
[2024-08-23 21:09] LABS: IMMATURE GRAN ABSOLUTE AUTO 0.02 K/uL (0.00-0.23)
[2024-08-23] MEDS: Sodium Chloride 0.9% 1,000 ML IV SCH (21:18)
[2024-08-23] MEDS: Prochlorperazine 10 MG/2 ML SDV IVPUSH ONE (21:18)
[2024-08-23] MEDS: Ketorolac 30 MG/ML SDV IVPUSH ONE (21:18)
[2024-08-23] MEDS: diphenhydrAMINE 50 MG/ML SDV IVPUSH ONE (21:19)
[2024-08-23 21:29] LABS: A/G RATIO 1.3 (1.2-2.2); ALANINE AMINOTRANSFERASE,ALT 23 U/L (12-78); ALBUMIN 4.1 g/dL (3.4-5.0); ALKALINE PHOSPHATASE 65 U/L (46-116); ASPARTATE AMNIOTRANSFERASE,AST 16 U/L (15-37); BLOOD UREA NITROGEN,BUN 10 mg/dL (7-18); CALCIUM 8.9 mg/dL (8.5-10.1); CARBON DIOXIDE,CO2 26 mmol/L (21-32); CHLORIDE,CL 103 mmol/L (100-108); CREATININE 0.8 mg/dL (0.6-1.0); EST CRCL DRUG DOSING (CG) 100.62 mL/min; ESTIMATED GFR 97 mL/min (>60); GLUCOSE RANDOM 107 mg/dL (74-106); POTASSIUM,K 3.9 mmol/L (3.6-5.2); PROTEIN TOTAL,TP 7.2 g/dL (6.4-8.2); SODIUM,NA 138 mmol/L (140-148)
[2024-08-23 21:30] LABS: ANION GAP 12.9 mmol/L (5.0-14.0)
== END 2024-08-23 23:12 | disposition home or self-care (01) ==
LOC: JP.ED 19:18
DX: G43.909 Migraine, unspecified, not intractable, without status migrainosus (principal); Z90.49 Acquired absence of other specified parts of digestive tract; F17.210 Nicotine dependence, cigarettes, uncomplicated; Z91.048 Other nonmedicinal substance allergy status; Z91.018 Allergy to other foods; Z88.8 Allergy status to other drugs, medicaments and biological substances
CPT/HCPCS: 36415; 70450; 80053; 85025; 96361; 96374; 96375; 99283; 99284; J0780; J1200; J1885; J7030

== ENCOUNTER 2025-02-24 19:23 | Emergency (ER) | payer OTHER ==
[2025-02-24 20:08] VITALS: BP 122/72; PULSE 83
== END 2025-02-24 21:28 | disposition home or self-care (01) ==
LOC: JP.ED 19:23
DX: F41.9 Anxiety disorder, unspecified (principal); A69.20 Lyme disease, unspecified; E78.00 Pure hypercholesterolemia, unspecified; K21.9 Gastro-esophageal reflux disease without esophagitis; F17.210 Nicotine dependence, cigarettes, uncomplicated; Z79.899 Other long term (current) drug therapy; Z91.048 Other nonmedicinal substance allergy status; Z88.1 Allergy status to other antibiotic agents; Z91.018 Allergy to other foods; Z88.8 Allergy status to other drugs, medicaments and biological substances
CPT/HCPCS: 99283

== ENCOUNTER 2025-03-14 13:26 | Emergency (ER) | payer OTHER ==
[2025-03-14 14:02] LABS: BASOPHILS ABSOLUTE AUTO 0.08 K/uL (0.00-0.10); BASOPHILS PERCENT AUTO 0.7 % (0.1-1.3); EOSINOPHILS ABSOLUTE AUTO 0.25 K/uL (0.00-0.40); EOSINOPHILS PERCENT AUTO 2.3 % (0.0-5.4); IMMATURE GRAN ABSOLUTE AUTO 0.04 K/uL (0.00-0.23); IMMATURE GRAN PERCENT AUTO 0.4 % (0.0-0.7); LYMPHOCYTES ABSOLUTE AUTO 4.20 K/uL (0.8-3.3); LYMPHOCYTES PERCENT AUTO 39.3 % (11.4-47.7); MONOCYTES ABSOLUTE AUTO 0.58 K/uL (0.20-0.90); MONOCYTES PERCENT AUTO 5.4 % (3.3-12.6); NEUTROPHILS ABSOLUTE AUTO 5.53 K/uL (1.0-7.6); NEUTROPHILS PERCENT AUTO 51.9 % (40.0-78.1); PLATELET COUNT,PLT 381 K/uL (130-375); RED BLOOD CELL COUNT 4.08 M/uL (3.77-5.24); WHITE BLOOD CELL COUNT,WBC 10.7 K/uL (3.2-11.0)
[2025-03-14 14:25] LABS: A/G RATIO 1.2 (1.2-2.2); ALANINE AMINOTRANSFERASE,ALT 32 U/L (12-78); ASPARTATE AMNIOTRANSFERASE,AST 16 U/L (15-37); BILIRUBIN TOTAL 0.9 mg/dL (0.2-1.0); BLOOD UREA NITROGEN,BUN 11 mg/dL (7-18); CARBON DIOXIDE,CO2 26 mmol/L (21-32); CHLORIDE,CL 103 mmol/L (100-108); CREATININE 0.9 mg/dL (0.6-1.0); EST CRCL DRUG DOSING (CG) 89.44 mL/min; ESTIMATED GFR 84 mL/min (>60); GLUCOSE RANDOM 168 mg/dL (74-106); POTASSIUM,K 4.0 mmol/L (3.6-5.2); PROTEIN TOTAL,TP 6.7 g/dL (6.4-8.2); SODIUM,NA 137 mmol/L (140-148)
[2025-03-14] MEDS: Ketorolac 15 MG/ML SDV IM ONE (15:16)
[2025-03-14 15:44] VITALS: BP 115/70; PULSE 76
== END 2025-03-14 15:58 | disposition home or self-care (01) ==
LOC: JP.ED 13:26
DX: R07.89 Other chest pain (principal); Z88.8 Allergy status to other drugs, medicaments and biological substances; Z91.048 Other nonmedicinal substance allergy status; Z79.899 Other long term (current) drug therapy; Z90.49 Acquired absence of other specified parts of digestive tract
CPT/HCPCS: 36415; 71046; 80053; 83735; 84484; 85025; 86140; 93005; 93010; 96372; 99284; 99285; J1885

== ENCOUNTER 2025-06-26 17:51 | Emergency (ER) | payer OTHER ==
[2025-06-26 18:36] VITALS: BP 157/85; PULSE 100
[2025-06-26 19:04] LABS: PLATELET COUNT,PLT 304 K/uL (130-375); RED BLOOD CELL COUNT 3.95 M/uL (3.77-5.24); WHITE BLOOD CELL COUNT,WBC 7.4 K/uL (3.2-11.0)
[2025-06-26 19:24] LABS: A/G RATIO 1.4 (1.2-2.2); ALANINE AMINOTRANSFERASE,ALT 28 U/L (12-78); ASPARTATE AMNIOTRANSFERASE,AST 16 U/L (15-37); ATYPICAL LYMPHOCYTES FEW; BILIRUBIN TOTAL 0.5 mg/dL (0.2-1.0); BLOOD UREA NITROGEN,BUN 9 mg/dL (7-18); CARBON DIOXIDE,CO2 25 mmol/L (21-32); CHLORIDE,CL 103 mmol/L (100-108); CREATININE 0.8 mg/dL (0.6-1.0); EOSINOPHILS ABSOLUTE MAN 0.44 K/uL (0.00-0.40); EOSINOPHILS PERCENT MAN 6 % (2-4); EST CRCL DRUG DOSING (CG) 99.64 mL/min; ESTIMATED GFR 97 mL/min (>60); GLUCOSE RANDOM 121 mg/dL (74-106); LYMPHOCYTES ABSOLUTE MAN 2.22 K/uL (0.8-3.3); LYMPHOCYTES PERCENT MAN 30 % (24-44); MONOCYTES ABSOLUTE MAN 0.59 K/uL (0.20-0.90); MONOCYTES PERCENT MAN 8 % (2-6); NEUTROPHILS ABSOLUTE MAN 4.14 K/uL (1.0-7.6); POTASSIUM,K 4.0 mmol/L (3.6-5.2); PROTEIN TOTAL,TP 6.6 g/dL (6.4-8.2); SEG NEUTROPHILS PERCENT MAN 56 % (36-66); SODIUM,NA 137 mmol/L (140-148)
[2025-06-26 19:27] LABS: SEDIMENTATION RATE MANUAL 16 mm/hr (0-25)
== END 2025-06-26 20:20 | disposition home or self-care (01) ==
LOC: JP.ED 17:51
DX: G62.9 Polyneuropathy, unspecified (principal); R51.9 Headache, unspecified; I10 Essential (primary) hypertension; E78.00 Pure hypercholesterolemia, unspecified; K21.9 Gastro-esophageal reflux disease without esophagitis; F17.210 Nicotine dependence, cigarettes, uncomplicated; Z88.1 Allergy status to other antibiotic agents; Z91.018 Allergy to other foods; Z91.048 Other nonmedicinal substance allergy status; Z88.8 Allergy status to other drugs, medicaments and biological substances; Z79.899 Other long term (current) drug therapy; Z79.85 Long-term (current) use of injectable non-insulin antidiabetic drugs; Z79.84 Long term (current) use of oral hypoglycemic drugs
CPT/HCPCS: 36415; 70450; 80053; 85025; 85651; 86140; 99284; A9270